=== PATIENT | male | born 1965 | race Asian ===

== ENCOUNTER 2020-08-04 13:23 | Emergency (ER) | payer OTHER, SELFPAY ==
[~2020-08-04] VITALS: Ht 170.2 cm; Wt 77.1 kg
--- NOTE | 2020-08-04 13:23 | NUR ---
BROUGHT INTO OUTSIDE TENT AND TRIAGED. PT AWAITING AVAILABLE ER BED.
[2020-08-04 13:25] VITALS: BP_SYST 146
--- NOTE | 2020-08-04 16:00 | NUR ---
Pt walked in to ER with c/o cough and SOB, v/s stable, pt is afebrile. Currently waiting in tent, no distress noted, will continue to monitor,
--- NOTE | 2020-08-04 16:05 | NUR ---
ER Dr. Brady at bedside examining patient.
--- NOTE | 2020-08-04 16:30 | NUR ---
Nasal swab obtained to r/o covid, sample sent to lab, pt tolerated well.
--- NOTE | 2020-08-04 16:40 | NUR ---
PORTABLE X-RAY DONE
[2020-08-04 17:25] VITALS: BP_SYST 146
--- NOTE | 2020-08-04 17:26 | NUR ---
Patient given written and verbal discharge instructions and verbalizes understanding. ER MD discussed with patient the results and treatment provided. Patient in stable condition. ID arm band removed. No prescriptions given. Patient educated on pain management and to follow up with PMD. Pain Scale 0. Opportunity for questions provided and answered. Medication side effect fact sheet provided.
== END 2020-08-04 17:26 | disposition home or self-care (01) ==
LOC: EEVIPCON 13:23 → SED 13:23
DX: J06.9 Acute upper respiratory infection, unspecified (principal); Z20.828 Contact with and (suspected) exposure to other viral communicable diseases
CPT/HCPCS: 71045; 99284; C9803; U0003